=== PATIENT | male | born 1995 | race Caucasian/White ===

== ENCOUNTER 2019-05-07 11:13 | Emergency (ER) | payer OTHER ==
[2019-05-07 11:34] VITALS: BP 133/78
--- NOTE | 2019-05-07 12:26 | ED Physician Documentation ---
History of Present Illness - Stated complaint Stated Complaint: R EYE IRRITATION - Chief complaint Chief Complaint: Heent - History obtained from History obtained from: Patient, Family - History of Present Illness Timing: How many days ago (2) Pain level max: 3 Pain level now: 2 - Additonal information Additional information: Patient with rhinorrhea, congestion and coughing for the past 3 to 4 days. Yesterday started noticing that his eyelid was beginning to swell, this morning the right upper eyelid is erythematous and swollen. Yellow drainage from the eye. Does not wear contacts. No recent trauma. No foreign body sensation. Nothing makes it better or worse Review of Systems Constitutional: denies: Fever, Chills Nose: reports: Rhinorrhea / runny nose, Congestion GI: denies: Nausea, Vomiting PD PAST MEDICAL HISTORY - Past Medical History Past Medical History: Yes Psych: Depression - Present Medications Home Medications: Ambulatory Orders Medication Instructions Recorded Confirmed Bupropion HCl [Wellbutrin Xl] 300 mg PO DAILY 05/07/19 05/07/19 Desvenlafaxine Succinate [Pristiq 100 mg PO DAILY 05/07/19 05/07/19 ER] Polymyxin B/Trimeth Ophth Drop 1 drops RIGHTEYE Q3H 7 Days #1 05/07/19 [Polytrim Ophth Drops] bottle clonazePAM [KlonoPIN] 0.5 mg PO DAILY PRN 05/07/19 05/07/19 - Allergies Allergies/Adverse Reactions: Allergies Allergy/AdvReac Type Severity Reaction Status Date / Time No Known Drug Allergies Allergy Verified 05/07/19 11:26 - Social History Does the pt smoke?: No Smoking Status: Never smoker Does the pt drink ETOH?: Yes Substance Use and Type: Marijuana PD ED PE NORMAL - Vitals Vital signs reviewed: Yes - General General: Alert and oriented X 3, No acute distress, Well developed/nourished - HEENT HEENT: PERRL, Other (Right upper eyelid is erythematous, swollen. Slight yellow drainage. Conjunctiva is mildly injected.) - Neck Neck: Supple, no meningeal sign - Derm Derm: Warm and dry - Neuro Neuro: Alert and oriented X 3 - Psych Psych: Normal mood, Normal affect Results - Vitals Vitals: Vital Signs - 24 hr 05/07/19 11:22 Temperature 36.9 C Heart Rate 64 Respiratory 18 Rate Blood Pressure 133/78 H O2 Saturation 98 Oxygen O2 Source Room air PD MEDICAL DECISION MAKING - ED course Complexity details: considered differential, d/w patient ED course: Patient with a right upper eyelid blepharitis. Will place on Polytrim ophthalmic. Will utilize warm compresses at home. He is well-appearing, nontoxic. Afebrile. Patient counseled regarding signs and symptoms for which I believe and urgent re-evaluation would be necessary. Patient with good understanding of and agreement to plan and is comfortable going home at this time This document was made in part using voice recognition software. While efforts are made to proofread this document, sound alike and grammatical errors may occur. Patient does not wear contacts Departure - Departure Disposition: 01 Home, Self Care Clinical Impression: Blepharitis of eyelid of right eye Qualifiers: Blepharitis type: unspecified type Eyelid: upper Qualified Code(s): H01.001 - Unspecified blepharitis right upper eyelid Condition: Good Instructions: ED Inflammation Eyelid Follow-Up: your,doctor in 1 week if not better [Other] Prescriptions: Polymyxin B/Trimeth Ophth Drop [Polytrim Ophth Drops] 1 drops RIGHTEYE Q3H 7 Days #1 bottle Comments: use the eyedrops as prescribed. Return if you worsen. You can also use warm compresses several times a day at home to help with drainage.
== END 2019-05-07 12:43 | disposition home or self-care (01) ==
LOC: ED 11:13
DX: H01.001 Unspecified blepharitis right upper eyelid (principal)
CPT/HCPCS: 99282; 99283

== ENCOUNTER 2020-05-16 17:19 | Outpatient (CLI) | payer OTHER | END 2020-05-16 17:20 | disposition home or self-care (01) | LOC: COV 17:19 | PROVIDERS: ATTEND Family Medicine | DX: R05 Cough (principal); R53.83 Other fatigue; R68.83 Chills (without fever); R07.0 Pain in throat; R43.8 Other disturbances of smell and taste; R09.81 Nasal congestion; J34.89 Other specified disorders of nose and nasal sinuses; R11.2 Nausea with vomiting, unspecified; Z20.828 Contact with and (suspected) exposure to other viral communicable diseases ==